=== PATIENT | male | born 2000 | race Two or more races ===

== ENCOUNTER 2021-06-15 21:20 | Emergency (ER) | payer SELFPAY ==
[~2021-06-15] VITALS: Ht 167.6 cm; Wt 56.7 kg
[2021-06-15 21:25] VITALS: BP 133/82
[2021-06-15 23:49] LABS: Basophils # (auto) 0 10 ^3/uL (0-0.2); Basophils % (auto) 0.1 % (0.0-2.0); Eosinophils # (auto) 0 10 ^3/uL (0-0.8); Hemoglobin 15.7 g/dL (13.5-17.5); Lymphocytes # (auto) 2.1 10 ^3/uL (0.4-5.4); Lymphocytes % (auto) 14.9 % (10.0-50.0); Mean Corpuscular Hemoglobin 31.3 pg (28.0-32.0); Mean Corpuscular Hgb Conc. 34.2 g/dL (32.0-36.0); Mean Corpuscular Volume 91.5 fL (80.0-100.0); Monocytes # (auto) 1.4 10 ^3/uL (0-1.3); Neutrophils # (auto) 10.5 10 ^3/uL (1.6-8.6); Nucleated Red Blood Cells % 0.3 %; Red Blood Cells 5.03 10^6/uL (4.5-5.90); Red Cell Distribution Width 13.4 % (11.8-14.3); White Blood Cell 14.1 10^3/uL (4.4-10.8)
[2021-06-16 00:11] LABS: Albumin 4.8 g/dL (3.4-5.0); Anion Gap 12 (5-15); Blood Urea Nitrogen 13 mg/dL (7-18); Calcium 9.5 mg/dL (8.5-10.1); Carbon Dioxide 25 mmol/L (21-32); Chloride 103 mmol/L (98-107); Glucose 109 mg/dL (74-106); Potassium 3.4 mmol/L (3.5-5.1); Salicylate < 1.7 mg/dL (2.8-20.0); Sodium 140 mmol/L (136-145)
[2021-06-16 00:12] LABS: Alanine Aminotransferase 31 U/L (16-61); Aspartate Aminotransferase 35 U/L (15-37); BUN/Creatinine Ratio 9.4; Blood Alcohol < 3.0 mg/dL (0-5); GFR African American 83 mL/min; GFR Non-African American 69 mL/min
[2021-06-16 00:15] LABS: Acetaminophen < 2.0 ug/mL (10-30); Alkaline Phosphatase 77 U/L (45-117); Bilirubin, Total 0.9 mg/dL (0.2-1.0); Total Protein 8.6 g/dL (6.4-8.2)
[2021-06-16 00:46] LABS: Urine Bacteria NONE SEEN /hpf (None Seen); Urine Blood Negative /uL (Negative); Urine Hyaline Cast MOD /lpf (0 - 2); Urine Mucus FEW (None Seen); Urine Specific Gravity 1.026 (1.001-1.035); Urine Sperm PRESENT /hpf (None Seen); Urine WBC 6 /hpf (0 - 3); Urine WBC Clumps PRESENT /hpf (None Seen)
[2021-06-16 00:52] LABS: Alcohol, Urine < 3.0 mg/dL (0-10); Barbiturate Scree,Urine NEGATIVE (NEGATIVE); Benzodiazephine Screen, Urine NEGATIVE (NEGATIVE); Cannabinoid Screen, Urine NEGATIVE (NEGATIVE); Cocaine Screen, Urine NEGATIVE (NEGATIVE); Opiate Scree,Urine NEGATIVE (NEGATIVE); Phencyclidine Screen, Urine NEGATIVE (NEGATIVE)
[2021-06-16 01:09] LABS: Amphetamine Screen, Urine POSITIVE (NEGATIVE)
== END 2021-06-16 02:46 | disposition left against medical advice (07) ==
LOC: ER 21:21
DX: R44.2 Other hallucinations (principal); Z53.21 Procedure and treatment not carried out due to patient leaving prior to being seen by health care provider
CPT/HCPCS: 36415; 80053; 80307; 80320; 80329; 81001; 85025